=== PATIENT | female | born 1985 | race Caucasian/White ===

== ENCOUNTER 2025-04-30 10:27 | Emergency (ER) | payer SELFPAY ==
[~2025-04-30] VITALS: Ht 167.6 cm; Wt 114.0 kg
[2025-04-30 10:31] VITALS: O2SAT 100
[2025-04-30 11:19] LABS: BASOPHILS % 0.6 % (0.0-2.0); EOSINOPHILS % 0.7 % (0.0-5.0); HEMATOCRIT. 36.1 % (36.0-48.0); HEMOGLOBIN. 11.9 g/dL (12.0-16.0); LYMPHOCYTES % 19.9 % (20.0-50.0); MEAN PLATELET VOLUME 7.8 fl (7.4-10.4); MONOCYTES % 2.3 % (2.0-8.0); NEUTROPHILS % 76.5 % (40.0-76.0); PLATELET 294 x1000/uL (130-400); RED BLOOD CELL COUNT 4.21 mill/uL (4.2-5.4); RED CELL DISTRIBUTION WIDTH 13.4 % (11.6-14.6)
[2025-04-30] MEDS: METOCLOPRAMIDE HCL 10MG TABLET PO ONE (11:27)
[2025-04-30] MEDS: ACETAMINOPHEN 325MG TABLET PO ONE (11:27)
[2025-04-30 11:31] LABS: CREATININE 0.7 mg/dL (0.6-1.0); UREA NITROGEN BLOOD 8 mg/dL (9-23)
[2025-04-30 11:32] LABS: CLARITY URINE CLEAR (CLEAR); COLOR URINE YELLOW (YELLOW); GLUCOSE URINE NEGATIVE (NEGATIVE); KETONES URINE NEGATIVE (NEGATIVE); LEUKOCYTE ESTERASE URINE 3+ (NEGATIVE); NITRITE URINE NEGATIVE (NEGATIVE); OCCULT BLOOD URINE NEGATIVE (NEGATIVE); PH URINE 5.5 (4.5-8.0); PROTEIN URINE NEGATIVE (NEGATIVE); SPECIFIC GRAVITY URINE 1.020 (1.005-1.030); UROBILINOGEN URINE 0.2 E.U./dL (0.2-1.0)
[2025-04-30 11:33] LABS: ASPARTATE AMINOTRANSFERASE 9 IU/L (<34); BILIRUBIN DIRECT < 0.1 mg/dL (<=3.0); BILIRUBIN TOTAL 0.2 mg/dL (0.1-1.0); PROTEIN TOTAL 6.5 g/dL (6.0-8.3)
[2025-04-30 11:59] LABS: B-HCG QUANTITATIVE 21719 mIU/mL (<6)
[2025-04-30 12:12] LABS: SQUAMOUS EPITHELIAL CELL URINE 2+ /lpf (RARE/1+)
[2025-04-30 12:15] LABS: BACTERIA URINE 4+; TRICHOMONAS URINE FEW
[2025-04-30 14:30] VITALS: BP 127/94; PULSE 86; RESP 18; TEMP 36.8; O2SAT 98
[2025-04-30] MEDS ORDERED: CEPH500T MT (14:35)
[2025-04-30] MEDS ORDERED: METO-293 MT (14:35)
[2025-04-30] MEDS ORDERED: PREN-183 MT (14:35)
== END 2025-04-30 14:45 | disposition home or self-care (01) ==
LOC: ER 10:27
DX: O26.893 Other specified pregnancy related conditions, third trimester (principal); O99.891 Other specified diseases and conditions complicating pregnancy; O21.2 Late vomiting of pregnancy; R10.2 Pelvic and perineal pain; Z3A.32 32 weeks gestation of pregnancy
CPT/HCPCS: 99284; 76805; 80076; 80048; 81003; 81025; 84702; 83690; 85025; 87086; 87186; 36415; J8597